=== PATIENT | male | born 1970 | race Caucasian/White ===

== ENCOUNTER 2021-05-11 13:18 | Emergency (ER) | payer OTHER ==
[~2021-05-11] VITALS: Ht 172.7 cm; Wt 124.7 kg
[2021-05-11 13:28] VITALS: BP_SYST 129
--- NOTE | 2021-05-11 14:11 | NUR ---
Patient to ER bed 01 to gown for evaluation. Side rails up.
--- NOTE | 2021-05-11 14:35 | NUR ---
DR MACKAY AT BEDSIDE EXAMINING PT.
[2021-05-11] MEDS ORDERED: CYCL10TA24 PO (14:58)
[2021-05-11] MEDS ORDERED: LIDO700A30 TP (14:58)
[2021-05-11] MEDS ORDERED: ACETAMINOPHEN 500 MG TABLET PO ONE (15:00)
[2021-05-11] MEDS ORDERED: CYCLOBENZAPRINE HCL 10 MG TABLET (FLEXERIL) PO ONE (15:00)
[2021-05-11] MEDS ORDERED: KETOROLAC TROMETHAMINE 60 MG/2 ML VIAL IM ONE (15:00)
--- NOTE | 2021-05-11 15:04 | NUR ---
MEDICATED PT WITH TORADOL IM, EXTRA STRENGTH TYLENOL, FLEXERIL.
[2021-05-11] MEDS ORDERED: IBUP-1971 PO (15:28)
[2021-05-11 15:45] VITALS: BP_SYST 123
--- NOTE | 2021-05-11 15:45 | NUR ---
Patient given written and verbal discharge instructions and verbalizes understanding. discussed with patient the results and treatment provided. Patient in stable condition. ID arm band removed. Rx of Flexeril, motrin, and lidocaine patch given. Patient educated on pain management and to follow up with PMD. Pain Scale 0. Opportunity for questions provided and answered. Medication side effect fact sheet provided.
== END 2021-05-11 15:45 | disposition home or self-care (01) ==
LOC: SED 13:18
DX: M54.30 Sciatica, unspecified side (principal); I10 Essential (primary) hypertension
CPT/HCPCS: 96372; 99283; J1885